=== PATIENT | male | born 1985 | race Two or more races ===

== ENCOUNTER 2024-11-01 13:58 | Outpatient (CLI) | payer OTHER ==
[~2024-11-01 13:58] MED LIST: TYLENOL-CODEINE1 TAB PO
== END 2024-11-01 14:00 | disposition home or self-care (01) ==
LOC: RAD 13:58
PROVIDERS: ATTEND Orthopaedic Surgery
DX: M54.2 Cervicalgia (principal); M25.511 Pain in right shoulder